=== PATIENT | male | born 1960 | race Caucasian/White ===

== ENCOUNTER 2020-10-04 15:47 | Emergency (ER) | payer BC ==
[~2020-10-04] VITALS: Ht 170.2 cm; Wt 103.8 kg
[~2020-10-04 15:47] MED LIST: CYCL-1 PO
[2020-10-04] MEDS ORDERED: PRED20TA PO (17:33)
[2020-10-04 17:45] VITALS: BP 123/75
== END 2020-10-04 17:54 | disposition home or self-care (01) ==
LOC: ER 15:48
DX: J04.0 Acute laryngitis (principal); Z20.822 Contact with and (suspected) exposure to COVID-19; R05 Cough; K21.9 Gastro-esophageal reflux disease without esophagitis; Z79.899 Other long term (current) drug therapy
CPT/HCPCS: 71045; 87635; 99284; C9803